=== PATIENT | male | born 1980 | race Caucasian/White ===

== ENCOUNTER 2016-07-18 13:22 | Inpatient (IN) | payer OTHER ==
[~2016-07-18] VITALS: Ht 182.9 cm; Wt 126.7 kg
--- NOTE | ~2016-07-18 | RESCARESUM ---
"PATIENT: GORDON WISE | | [facility] UNIT #: [id number] | [address] AGE/SEX: 36 M : [birth year] | [address] | [place] [address] ADMIT/REG DATE: 07/18/16 | ROOM: [facility] LOC: ADTC | ADTC | Summary of Residential Care Primary Counselor: Brett Segal LM,[facility] Date of Admission: 18 JULY 2016 Date of Discharge: 19 JULY 2016 [facility] Primary Care Provider Prior to Admission: [facility] Admitting Diagnosis: 303.90/F10.20 ALCOHOL USE DISORDER, MODERATE 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 CLIENT LEFT AGAINST MEDICAL ADVICE (AMA) ON HIS SECOND DAY. Continued Obstacles to Sobriety/Relapse Issues: DENIAL/DELUSION, POOR IMPULSE CONTROL, DEPRESSION Family Issues Addressed: NONE/CLIENT LEFT AMA (AGAINST MEDICAL ADVICE) ON HIS SECOND DAY. N Individual Therapy LEFT IN THE MIDDLE OF THE SESSION Y Group Therapy ATTENDED ONE GROUP THERAPY SESSION Y Educational Series on Substance Abuse ONE SESSION N Parents/Significant Others Attended Family Program N Non-accepting of Substance Abuse Problem Completed AA Step # NONE During This Level of Care Significant Incidences During Treatment: CLIENT LEFT AGAINST MEDICAL ADVICE ON HIS SECOND DAY IN TREATMENT. Reason For Discharge: Y Left Tx Against Medical Advice/Treatment Goals Not Complete Continuing Care Plan/Recommendations: Y Sponsor Y AA Meetings/NA Meetings Y [address] Y RESIDENTIAL TREATMENT PROGRAM Specific Continuing Care Plan: CLIENT NEEDS TO SUCCESSFULLY COMPLETE A RESIDENTIAL TREATMENT PROGRAM AND WOULD BENEFIT FROM RESIDENCE FOR 4-6 MONTHS IN A SOBER LIVING ENVIRONMENT UNTIL DISCHARGED WITH STAFF APPROVAL. CLIENT VERBALIZES RESISTANCE TO AA/NA 12 STEP RECOVERY SO NEEDS TO FIND AN EFFECTIVE ALTERNATIVE. PATIENT: GORDON WISE | | [facility] UNIT #: [id number] | [address] AGE/SEX: 36 M : [birth year] | [address] | [place] [address] ADMIT/REG DATE: 07/18/16 | ROOM: [facility] LOC: ADTC | ADTC | Summary of Residential Care PRIMARY COUNSELOR: BRETT SEGAL [facility]"
--- NOTE | 2016-07-18 16:02 | NUR ---
RECOVERY EDUCATION 1 HR. Todays topic was on denial; good, bad, and levels, life problems being 85 percent of recovery, and distorted thinking patterns that can keep us stuck.
--- NOTE | 2016-07-18 16:17 | NUR ---
ADMISSION NOTE Rights/Responsibilities: Copy given and explained to client. Signed and accepted by client. Client oriented to physical lay out of the ADTC unit, given Big Book and admission packet. A Horacio was assigned. Lobito Client is a 36yr old male. Referred by CSU where he has been for the past 3 days. Lives in [place], [place]. DOC, Alcohol, last used 07/08/16, 750L daily. Was searched no contraband found. Initial paperwork given and guidelines gone over. Doctor has been notified.
--- NOTE | 2016-07-18 18:46 | NUR ---
Education: 1 Hour. Client attended "Feelings" lecture given by staff.
--- NOTE | 2016-07-18 22:16 | NUR ---
Tech note: Client participated in rec by playing giant [employer] outside. Client attended an onsite NA meeting. He was checked into his room and gave his first intro. Client was not seen by the
--- NOTE | 2016-07-18 22:22 | NUR ---
tech note: client c/o level 5 back pain @ 2221,motrin 400 mg was given.
--- NOTE | 2016-07-19 04:18 | NUR ---
BED NOTE: client was in bed, motionless with eyes closed all three bed checks.
--- NOTE | 2016-07-19 12:23 | NUR ---
A.M. 1.5 hr group/ratio 1:11/ Group heard a 2 getting started assignments and a feelings letter. Focus was on how our addiction affects kids and significant others, abuse, and how important it is to express feelings. This client was oriented to group rules. He was quiet but attentive.
--- NOTE | 2016-07-19 15:56 | NUR ---
Discharge Note: Client left AMA and was in a hurry. AMA form signed and all property and meds. went with him. He had his own vehicle.
--- NOTE | 2016-07-19 16:00 | NUR ---
INDIVIDUAL SESSION 1 HR: ORIENTED CLIENT TO TREATMENT GUIDELINES, GOALS AND OBJECTIVES. Client verbalized understanding concepciono expressed anger that he is not allowed to have any personal reading material including his Recovery Bible. I went through the INITIAL TREATMENT PLAN which client signed, then said, "I'll sign this, but unless you guys transfer me to [facility], I am leaving tomorrow. I tried to keep the client engaged by questioning his reasons for being here which he really minimized. On further examination of his evaluation, I read that he attempted suicide in early March 2016 which he previously denied. Client heard that we would not be recommending a lower level of care and he opted to leave [facility].
--- NOTE | 2016-09-01 08:13 | HP ---
ADMIT: 07/18/2016 RM/LOC: [facility] MR#: [id number] [facility] [place] [address] GORDON WISE [address] [place] [address] History and Physical SEX: M AGE: 36 : 1980 DATE OF SERVICE: CHIEF COMPLAINT: Alcohol use and dependency. HISTORY OF PRESENT ILLNESS: Mr. Resendez is a 36-year-old male who admitted to residential level treatment on July 18, 2016, at [facility]. Drug of choice on admission was alcohol. He first started drinking at the age of 19. In the last couple of months, he had been drinking 750 mL of hard liquor 3 to 4 times a week. He had been through previous treatment at [facility] in 2006. He states he had been sober for 9 years and relapse. No history of alcohol withdrawal seizures is noted. Second drug of choice is denied. PAST MEDICAL HISTORY: OPERATIONS: None noted. ILLNESSES: He has a history of hypertension and his blood alcohol was 396 on admission to [facility] when he was admitted there after an episode of suicidal ideation. MEDICATIONS: None. SOCIAL HISTORY: He was a prior smoker. He had quit smoking. FAMILY HISTORY: Mother and father with a history of alcohol use. Family history additionally includes coronary artery disease in paternal grandfather, cancer in father and brother, hypertension in father and in the patient, and stroke in grandmother. ADMIT: 07/18/2016 RM/LOC: [facility] MR#: [id number] [address] [id number] GORDON WISE [address] [place] [address] History and Physical SEX: M AGE: 36 : 1980 REVIEW OF SYSTEMS: Negative. PHYSICAL EXAMINATION: Was not done. The patient left against medical advice. ASSESSMENT: 1. Alcohol use disorder, severe. 2. Benign essential hypertension by history with need for a sequential blood pressure monitoring and confirmation. 3. Tobacco use disorder, in remission. Procedures include initiation of alcohol abuse dependency treatment and counseling. The patient leaving AMA within 24 hours of admission. Stanley Ly MD/ freddy JOB #: [id number] CC: Stanley Ly MD, Attending Physician Thelma Miles MD, Family Physician
--- NOTE | 2016-09-01 08:13 | DS ---
ADMIT: 07/18/2016 RM/LOC: [facility] MR#: [id number] [address] [address] MAL WISE [address] [place] [address] General Discharge Summary SEX: M AGE: 36 : 1980 ADMISSION DATE: 07/18/2016 DISCHARGE DATE: 07/19/2016 INDICATION FOR HOSPITALIZATION: Mal is a 36-year-old male, who is admitted to residential level treatment on July 18 for drug and alcohol abuse and dependency. He actually left treatment within 24 hours prior to being seen. His drug of choice on admission was alcohol. DICTATION ENDS HERE Stanley Ly MD/ freddy JOB #: [id number] CC: Stanley Ly MD, Attending Physician Thelma Miles MD, Family Physician
== END 2016-07-19 15:59 | disposition left against medical advice (07) | DRG 894 ==
LOC: ADTC 13:22
PROVIDERS: ADMIT Family Medicine
PROC: HZ34ZZZ Individual Counseling for Substance Abuse Treatment, Interpersonal (ICD-10-PCS; principal; 2016-07-18)
PROC: HZ43ZZZ Group Counseling for Substance Abuse Treatment, 12-Step (ICD-10-PCS; principal; 2016-07-18)
DX: F10.20 Alcohol dependence, uncomplicated (principal); I10 Essential (primary) hypertension; F17.211 Nicotine dependence, cigarettes, in remission

== ENCOUNTER 2016-09-19 21:44 | Emergency (ER) | payer SELFPAY ==
--- NOTE | 2016-09-29 16:41 | ER ---
ADMIT: 09/19/2016 RM/LOC: ER [facility] MR#: [id number] [address] [address] GORDON WISE [address] [place] [address] Emergency Room Report SEX: M AGE: 36 : 1980 DATE: 09/19/2016 A 36-year-old brought in by police for clearance. He was drinking alcohol tonight where he was arrested. Medically cleared. Ho Dickerson MD/ freddy JOB #: [id number] CC: Ever Serna MD, Attending Physician Samira Luke MD, Family Physician
== END 2016-09-19 21:53 | disposition home or self-care (01) ==
LOC: ER 21:44
DX: Z02.89 Encounter for other administrative examinations (principal); I10 Essential (primary) hypertension; Z88.2 Allergy status to sulfonamides; Z79.899 Other long term (current) drug therapy